=== PATIENT | male | born 1965 | race Caucasian/White ===

== ENCOUNTER 2017-11-17 08:00 | Outpatient (CLI) | payer OTHER ==
[2017-11-17 19:26] LABS: BASOPHILS % (AUTO) 1.2 %; EOSINOPHILS % (AUTO) 1.4 %; HGB - HEMOGLOBIN 7.4 g/dL (14.0-18.0); LYMPHOCYTES # (AUTO) 0.7 10^3/uL (1.5-3.5); LYMPHOCYTES % (AUTO) 25.4 %; MEAN CORPUSCULAR HEMOGLOBIN 25.6 pg (27.0-31.0); MEAN CORPUSCULAR HGB CONC 29.2 g/dL (32.0-36.0); MEAN CORPUSCULAR VOLUME 87.8 fL (80.0-94.0); MEAN PLATELET VOLUME 9.2 fL (7.4-11.4); MONOCYTES # (AUTO) 0.3 10^3/uL (0.0-1.0); MONOCYTES % (AUTO) 11.6 %; NEUTROPHILS # (AUTO) 1.6 10^3/uL (1.5-6.6); NEUTROPHILS % (AUTO) 60.4 %; PLT - PLATELET COUNT 172 10^3/uL (130-450); RED BLOOD COUNT 2.87 10^6/uL (4.70-6.10); RED CELL DISTRIBUTION WIDTH 14.4 % (12.0-15.0); WHITE BLOOD COUNT 2.7 x10^3/uL (4.8-10.8)
[2017-11-17 19:50] LABS: % IRON SATURATION 3 % (20-50); ALBUMIN 3.7 g/dL (3.2-5.5); ALKALINE PHOSPHATASE 71 IU/L (42-121); ALT ALANINE AMINOTRANSFERASE 33 IU/L (10-60); AST ASPARTATE AMINOTRANSFERASE 48 IU/L (10-42); BILIRUBIN,TOTAL 1.4 mg/dL (0.2-1.0); BUN - BLOOD UREA NITROGEN 10 mg/dL (6-20); CALCIUM 8.5 mg/dL (8.5-10.3); CARBON DIOXIDE - CO2 24 mmol/L (21-32); CHLORIDE 101 mmol/L (101-111); CHOL/HDL RATIO 4.5 (<5.0); CHOLESTEROL 140 mg/dL; CREATININE 0.9 mg/dL (0.6-1.2); GFR - MDRD 89 (>89); GLUCOSE 288 mg/dL (70-100); HDL CHOLESTEROL 31 mg/dL; IRON 17 ug/dL (45-182); LDL CHOLESTEROL,CALCULATED 71 mg/dL; LDL/HDL RATIO 2.3 (<3.6); SODIUM 132 mmol/L (135-145); TOTAL IRON BINDING CAPACITY 487 ug/dL (250-450); TOTAL PROTEIN 7.3 g/dL (6.7-8.2); TRANSFERRIN 348 mg/dL (180-329); VLDL CHOLESTEROL 38 mg/dL
[2017-11-17 20:35] LABS: PLATELET ESTIMATE, MANUAL NORMAL (130-450,000) (NORMAL); PLATELET MORPHOLOGY 2+ GIANT PLATELETS (NORMAL)
[2017-11-17 21:42] LABS: FERRITIN 9.9 ng/mL (23.9-336.2)
[2017-11-17 21:45] LABS: FOLATE 20.48 ng/mL (5.90 - >24.8)
== END 2017-11-17 08:01 ==
LOC: LAB.WCP 08:00
PROVIDERS: ATTEND Family Medicine
DX: I10 Essential (primary) hypertension (principal); K21.9 Gastro-esophageal reflux disease without esophagitis; D50.9 Iron deficiency anemia, unspecified; Z12.5 Encounter for screening for malignant neoplasm of prostate
CPT/HCPCS: 36415; 80053; 80061; 82607; 82728; 82746; 83540; 84153; 84466; 85025

== ENCOUNTER 2017-12-01 08:32 | Outpatient (CLI) | payer OTHER ==
[2017-12-01 09:18] LABS: EOSINOPHILS # (AUTO) 0.1 10^3/uL (0.0-0.7); EOSINOPHILS % (AUTO) 3.1 %; HGB - HEMOGLOBIN 8.7 g/dL (14.0-18.0); LYMPHOCYTES # (AUTO) 0.9 10^3/uL (1.5-3.5); LYMPHOCYTES % (AUTO) 30.9 %; MEAN CORPUSCULAR HEMOGLOBIN 24.5 pg (27.0-31.0); MEAN CORPUSCULAR HGB CONC 28.7 g/dL (32.0-36.0); MEAN CORPUSCULAR VOLUME 85.3 fL (80.0-94.0); MEAN PLATELET VOLUME 9.1 fL (7.4-11.4); MONOCYTES # (AUTO) 0.2 10^3/uL (0.0-1.0); MONOCYTES % (AUTO) 7.3 %; NEUTROPHILS # (AUTO) 1.7 10^3/uL (1.5-6.6); NEUTROPHILS % (AUTO) 57.7 %; PLT - PLATELET COUNT 150 10^3/uL (130-450); RED BLOOD COUNT 3.53 10^6/uL (4.70-6.10); RED CELL DISTRIBUTION WIDTH 15.7 % (12.0-15.0); WHITE BLOOD COUNT 2.9 x10^3/uL (4.8-10.8)
[2017-12-01 09:26] LABS: ALBUMIN 3.9 g/dL (3.2-5.5); ALBUMIN/GLOBULIN RATIO 1.2 (1.0-2.2); BILIRUBIN,TOTAL 1.1 mg/dL (0.2-1.0); CALCIUM 8.8 mg/dL (8.5-10.3); CREATININE 0.8 mg/dL (0.6-1.2); TOTAL PROTEIN 7.2 g/dL (6.7-8.2)
[2017-12-01 09:51] LABS: PLATELET MORPHOLOGY NORMAL APPEARANCE (NORMAL)
[2017-12-01 09:52] LABS: PLATELET ESTIMATE, MANUAL NORMAL (130-450,000) (NORMAL)
== END 2017-12-01 08:33 | disposition home or self-care (01) ==
LOC: LAB 08:32
PROVIDERS: ATTEND Family Medicine
DX: E11.9 Type 2 diabetes mellitus without complications (principal); D50.9 Iron deficiency anemia, unspecified
CPT/HCPCS: 36415; 80053; 85025

== ENCOUNTER 2018-03-01 08:00 | Outpatient (CLI) | payer OTHER | END 2018-03-01 23:59 | LOC: LAB.R 08:00 | PROVIDERS: ATTEND Internal Medicine | DX: D50.9 Iron deficiency anemia, unspecified (principal) | CPT/HCPCS: 82270 ==

== ENCOUNTER 2018-07-05 08:00 | Outpatient (CLI) | payer OTHER ==
[2018-07-05 12:58] LABS: BASOPHILS % (AUTO) 0.7 %; EOSINOPHILS # (AUTO) 0.1 10^3/uL (0.0-0.7); EOSINOPHILS % (AUTO) 3.3 %; HGB - HEMOGLOBIN 8.3 g/dL (14.0-18.0); LYMPHOCYTES # (AUTO) 0.6 10^3/uL (1.5-3.5); LYMPHOCYTES % (AUTO) 23.4 %; MEAN CORPUSCULAR HEMOGLOBIN 27.3 pg (27.0-31.0); MEAN CORPUSCULAR HGB CONC 31.8 g/dL (32.0-36.0); MEAN CORPUSCULAR VOLUME 85.8 fL (80.0-94.0); MEAN PLATELET VOLUME 9.1 fL (7.4-11.4); MEAN RETIC VALUE 102.7; MONOCYTES # (AUTO) 0.3 10^3/uL (0.0-1.0); MONOCYTES % (AUTO) 9.9 %; NEUTROPHILS # (AUTO) 1.7 10^3/uL (1.5-6.6); NEUTROPHILS % (AUTO) 62.7 %; PLT - PLATELET COUNT 112 10^3/uL (130-450); RED BLOOD COUNT 3.04 10^6/uL (4.70-6.10); RED CELL DISTRIBUTION WIDTH 15.8 % (12.0-15.0); WHITE BLOOD COUNT 2.7 x10^3/uL (4.8-10.8)
[2018-07-05 13:03] LABS: HB2 TOTAL 8.5 g/dL; HEMOGLOBIN A1C 0.32 g/dL; HEMOGLOBIN A1C % 5.6 % (4.6-6.2)
[2018-07-05 13:09] LABS: ALBUMIN 4.2 g/dL (3.2-5.5); ALBUMIN/GLOBULIN RATIO 1.4 (1.0-2.2); CREATININE 0.8 mg/dL (0.6-1.2); THYROID STIMULATING HORMONE 2.3 uIU/mL (0.34-5.60); TOTAL PROTEIN 7.3 g/dL (6.7-8.2)
[2018-07-05 13:12] LABS: CALCIUM 8.9 mg/dL (8.5-10.3)
[2018-07-05 13:16] LABS: FERRITIN 8.6 ng/mL (23.9-336.2)
[2018-07-05 13:28] LABS: PLATELET MORPHOLOGY RARE GIANT PLATELETS (NORMAL); RBC MORPHOLOGY (MULTIPLE) 3+ ANISOCYTOSIS (NORMAL)
== END 2018-07-05 08:01 | disposition home or self-care (01) ==
LOC: LAB.WCP 08:00
PROVIDERS: ATTEND Family Medicine
DX: D61.818 Other pancytopenia (principal); E11.9 Type 2 diabetes mellitus without complications; D50.9 Iron deficiency anemia, unspecified; I10 Essential (primary) hypertension
CPT/HCPCS: 36415; 80053; 82607; 82728; 82746; 83036; 83540; 84443; 84466; 85025; 85044

== ENCOUNTER 2018-08-23 10:50 | Outpatient (CLI) | payer OTHER ==
[2018-08-23 13:56] LABS: EOSINOPHILS % (AUTO) 2.3 %; HGB - HEMOGLOBIN 8.4 g/dL (14.0-18.0); LYMPHOCYTES # (AUTO) 0.4 10^3/uL (1.5-3.5); LYMPHOCYTES % (AUTO) 22.7 %; MEAN CORPUSCULAR HEMOGLOBIN 25.9 pg (27.0-31.0); MEAN CORPUSCULAR HGB CONC 30.4 g/dL (32.0-36.0); MEAN CORPUSCULAR VOLUME 85.3 fL (80.0-94.0); MEAN PLATELET VOLUME 9.2 fL (7.4-11.4); MONOCYTES # (AUTO) 0.2 10^3/uL (0.0-1.0); MONOCYTES % (AUTO) 12.1 %; NEUTROPHILS # (AUTO) 1.2 10^3/uL (1.5-6.6); NEUTROPHILS % (AUTO) 61.9 %; PLT - PLATELET COUNT 110 10^3/uL (130-450); RED BLOOD COUNT 3.23 10^6/uL (4.70-6.10); RED CELL DISTRIBUTION WIDTH 19.8 % (12.0-15.0)
[2018-08-23 14:35] LABS: PLATELET ESTIMATE, MANUAL DECREASED (<130,000) (NORMAL); PLATELET MORPHOLOGY NN (NORMAL)
[2018-08-23 14:41] LABS: WHITE BLOOD COUNT 1.9 x10^3/uL (4.8-10.8)
[2018-08-23 15:03] LABS: ALBUMIN/GLOBULIN RATIO 1.3 (1.0-2.2); BILIRUBIN,TOTAL 1.8 mg/dL (0.2-1.0); CALCIUM 9.1 mg/dL (8.5-10.3); CREATININE 0.9 mg/dL (0.6-1.2)
[2018-08-23 15:10] LABS: HB2 TOTAL 8.6 g/dL; HEMOGLOBIN A1C 0.28 g/dL; HEMOGLOBIN A1C % 5.1 % (4.6-6.2)
== END 2018-08-23 10:51 | disposition home or self-care (01) ==
LOC: LAB.WCP 10:50
PROVIDERS: ATTEND Family Medicine
DX: D50.9 Iron deficiency anemia, unspecified (principal); K64.8 Other hemorrhoids; D61.818 Other pancytopenia; E11.9 Type 2 diabetes mellitus without complications
CPT/HCPCS: 36415; 80053; 82728; 83036; 83540; 84466; 85025

== ENCOUNTER 2019-04-12 08:00 | Outpatient (CLI) | payer OTHER ==
[2019-04-12 14:12] LABS: BASOPHILS % (AUTO) 0.6 %; EOSINOPHILS # (AUTO) 0.1 10^3/uL (0.0-0.7); EOSINOPHILS % (AUTO) 4.1 %; HGB - HEMOGLOBIN 9.9 g/dL (14.0-18.0); LYMPHOCYTES # (AUTO) 0.5 10^3/uL (1.5-3.5); LYMPHOCYTES % (AUTO) 18.7 %; MEAN CORPUSCULAR HEMOGLOBIN 23.4 pg (27.0-31.0); MEAN CORPUSCULAR HGB CONC 30.4 g/dL (32.0-36.0); MEAN CORPUSCULAR VOLUME 76.9 fL (80.0-94.0); MEAN PLATELET VOLUME 8.5 fL (7.4-11.4); MONOCYTES # (AUTO) 0.2 10^3/uL (0.0-1.0); MONOCYTES % (AUTO) 8.5 %; NEUTROPHILS % (AUTO) 68.1 %; PLT - PLATELET COUNT 135 10^3/uL (130-450); RED BLOOD COUNT 4.24 10^6/uL (4.70-6.10); RED CELL DISTRIBUTION WIDTH 18.3 % (12.0-15.0); WHITE BLOOD COUNT 2.9 x10^3/uL (4.8-10.8)
[2019-04-12 14:29] LABS: CREATININE,URINE 182.1 mg/dL; MICROALBUM/CREATININE RATIO,UR 18.1 ug/mg (<30.0); MICROALBUMIN,URINE 3.3 mg/dL (0-300.0)
[2019-04-12 14:35] LABS: BILIRUBIN,TOTAL 1.3 mg/dL (0.2-1.0); CREATININE 1.2 mg/dL (0.6-1.2); TOTAL PROTEIN 7.9 g/dL (6.7-8.2)
[2019-04-12 15:43] LABS: PLATELET ESTIMATE, MANUAL NORMAL (130-450,000) (NORMAL); PLATELET MORPHOLOGY 1+ LARGE PLATELETS (NORMAL); RBC MORPHOLOGY (MULTIPLE) 1+ POLYCHROMASIA (NORMAL)
== END 2019-04-12 23:59 | disposition home or self-care (01) ==
LOC: LAB.WCP 08:00
PROVIDERS: ATTEND Family Medicine
DX: D64.9 Anemia, unspecified (principal); K64.8 Other hemorrhoids; K22.70 Barrett's esophagus without dysplasia; I10 Essential (primary) hypertension
CPT/HCPCS: 36415; 80053; 81599; 82043; 82570; 82728; 83036; 83540; 84466; 85025

== ENCOUNTER 2019-08-07 11:16 | Outpatient (CLI) | payer OTHER ==
[2019-08-07 11:29] LABS: BASOPHILS % (AUTO) 1.3 %; EOSINOPHILS # (AUTO) 0.1 10^3/uL (0.0-0.7); EOSINOPHILS % (AUTO) 3.5 %; HGB - HEMOGLOBIN 11.7 g/dL (14.0-18.0); LYMPHOCYTES # (AUTO) 0.5 10^3/uL (1.5-3.5); LYMPHOCYTES % (AUTO) 16.5 %; MEAN CORPUSCULAR HEMOGLOBIN 27.3 pg (27.0-31.0); MEAN CORPUSCULAR HGB CONC 30.3 g/dL (32.0-36.0); MEAN PLATELET VOLUME 9.7 fL (7.4-11.4); MONOCYTES # (AUTO) 0.3 10^3/uL (0.0-1.0); MONOCYTES % (AUTO) 10.3 %; NEUTROPHILS # (AUTO) 2.1 10^3/uL (1.5-6.6); NEUTROPHILS % (AUTO) 68.1 %; PLT - PLATELET COUNT 90 10^3/uL (130-450); RED BLOOD COUNT 4.29 10^6/uL (4.70-6.10); RED CELL DISTRIBUTION WIDTH 26.5 % (12.0-15.0); WHITE BLOOD COUNT 3.1 x10^3/uL (4.8-10.8)
[2019-08-07 11:52] LABS: HB2 TOTAL 12.2 g/dL; HEMOGLOBIN A1C 0.48 g/dL; HEMOGLOBIN A1C % 5.8 % (4.6-6.2)
[2019-08-07 11:55] LABS: ALBUMIN 3.5 g/dL (3.2-5.5); ALBUMIN/GLOBULIN RATIO 0.8 (1.0-2.2); BILIRUBIN,TOTAL 3.2 mg/dL (0.2-1.0); CALCIUM 8.7 mg/dL (8.5-10.3); CRP - C-REACTIVE PROTEIN 5.4 mg/dL (0-1.0)
[2019-08-07 12:12] LABS: CREATININE,URINE 210.7 mg/dL; MICROALBUM/CREATININE RATIO,UR 67.9 ug/mg (<30.0); MICROALBUMIN,URINE 14.3 mg/dL (0-300.0)
== END 2019-08-07 11:17 | disposition home or self-care (01) ==
LOC: LAB 11:16
PROVIDERS: ATTEND Family Medicine
DX: C64.1 Malignant neoplasm of right kidney, except renal pelvis (principal); D64.9 Anemia, unspecified; D50.9 Iron deficiency anemia, unspecified; E11.9 Type 2 diabetes mellitus without complications; I10 Essential (primary) hypertension
CPT/HCPCS: 36415; 80053; 82043; 82570; 82728; 83036; 83540; 84466; 85025; 85651; 86140

== ENCOUNTER 2019-08-14 10:25 | Outpatient (CLI) | payer OTHER | END 2019-08-14 10:26 | disposition critical access hospital (66) | LOC: EMS 10:25 | PROVIDERS: ATTEND Surgery | DX: R55 Syncope and collapse (principal); R41.0 Disorientation, unspecified; R51 Headache; R47.81 Slurred speech | CPT/HCPCS: A0425; A0429 ==

== ENCOUNTER 2019-08-14 10:41 | Observation (INO) | payer OTHER ==
--- NOTE | 2019-08-14 10:46 | ED Physician Documentation ---
History of Present Illness - Stated complaint Stated Complaint: POSS CVA PD PAST MEDICAL HISTORY - Present Medications Home Medications: Ambulatory Orders Medication Instructions Recorded Confirmed Carvedilol 2 tab PO DAILY 01/10/18 07/03/19 Esomeprazole Magnesium [Nexium 20 mg PO DAILY 01/10/18 07/03/19 24Hr] Ferrous Sulfate 1 tab PO DAILY 01/10/18 07/03/19 amLODIPine [Norvasc] 2.5 mg PO DAILY 01/10/18 07/03/19 metFORMIN [Glucophage] 1,000 mg PO DAILY 01/10/18 07/03/19 - Allergies Allergies/Adverse Reactions: Allergies Allergy/AdvReac Type Severity Reaction Status Date / Time fentanyl AdvReac Unknown Verified 08/14/19 11:15 Results - Vitals Vitals: Vital Signs - 24 hr 08/14/19 08/14/19 08/14/19 10:40 11:10 12:03 Temperature 36.6 C Heart Rate 88 88 88 Respiratory 18 17 29 H Rate Blood Pressure 144/88 H 143/87 H 143/84 H O2 Saturation 92 93 95 Oxygen O2 Source Room air - Labs Labs: Laboratory Tests 08/14/19 08/14/19 08/14/19 11:05 11:05 11:05 WBC 3.1 L RBC 4.16 L Hgb 11.1 L Hct 37.1 L MCV 89.2 MCH 26.7 L MCHC 29.9 L Plt Count 80 L MPV 9.6 Neut # (Auto) 1.9 Lymph # (Auto) 0.7 L Rowan # (Auto) 0.3 Eos # (Auto) 0.1 Baso # (Auto) 0.0 Absolute Nucleated RBC 0.00 Nucleated RBC % 0.0 Manual Slide Review Indicated Platelet Estimate DECREASED (<130,000) Platelet Morphology NORMAL APPEARANCE RBC Morph Micro Appear 2+ ANISOCYTOSIS PT 15.0 H INR 1.3 H APTT 37.3 H Sodium 142 Potassium 3.9 Chloride 103 Carbon Dioxide 23 Anion Gap 16.0 H BUN 5 L Creatinine 0.9 Estimated GFR (MDRD) 88 L Glucose 147 H Calcium 8.3 L Total Bilirubin 3.1 H AST 202 H ALT 54 Alkaline Phosphatase 219 H Troponin I High Sens Total Protein 7.4 Albumin 3.2 Globulin 4.2 Albumin/Globulin Ratio 0.8 L Lipase 43 TSH Urine Color Urine Clarity Urine pH Ur Specific [place] Urine Protein Urine Glucose (UA) Urine Ketones Urine Occult Blood Urine Nitrite Urine Bilirubin Urine Urobilinogen Ur Leukocyte Esterase Ur Microscopic Review Urine Culture Comments Ethyl Alcohol 08/14/19 08/14/19 08/14/19 11:05 11:05 11:05 WBC RBC Hgb Hct MCV MCH MCHC Plt Count MPV Neut # (Auto) Lymph # (Auto) Rowan # (Auto) Eos # (Auto) Baso # (Auto) Absolute Nucleated RBC Nucleated RBC % Manual Slide Review Platelet Estimate Platelet Morphology RBC Morph Micro Appear PT INR APTT Sodium Potassium Chloride Carbon Dioxide Anion Gap BUN Creatinine Estimated GFR (MDRD) Glucose Calcium Total Bilirubin AST ALT Alkaline Phosphatase Troponin I High Sens 11.4 Total Protein Albumin Globulin Albumin/Globulin Ratio Lipase TSH 3.91 Urine Color Urine Clarity Urine pH Ur Specific [place] Urine Protein Urine Glucose (UA) Urine Ketones Urine Occult Blood Urine Nitrite Urine Bilirubin Urine Urobilinogen Ur Leukocyte Esterase Ur Microscopic Review Urine Culture Comments Ethyl Alcohol 205.8 08/14/19 12:10 WBC RBC Hgb Hct MCV MCH MCHC Plt Count MPV Neut # (Auto) Lymph # (Auto) Rowan # (Auto) Eos # (Auto) Baso # (Auto) Absolute Nucleated RBC Nucleated RBC % Manual Slide Review Platelet Estimate Platelet Morphology RBC Morph Micro Appear PT INR APTT Sodium Potassium Chloride Carbon Dioxide Anion Gap BUN Creatinine Estimated GFR (MDRD) Glucose Calcium Total Bilirubin AST ALT Alkaline Phosphatase Troponin I High Sens Total Protein Albumin Globulin Albumin/Globulin Ratio Lipase TSH Urine Color YELLOW Urine Clarity CLEAR Urine pH 7.0 Ur Specific [place] <=1.005 Urine Protein NEGATIVE Urine Glucose (UA) NEGATIVE Urine Ketones TRACE Urine Occult Blood NEGATIVE Urine Nitrite NEGATIVE Urine Bilirubin NEGATIVE Urine Urobilinogen 1 (NORMAL) Ur Leukocyte Esterase NEGATIVE Ur Microscopic Review NOT INDICATED Urine Culture Comments NOT INDICATED Ethyl Alcohol
[2019-08-14 11:13] LABS: EOSINOPHILS # (AUTO) 0.1 10^3/uL (0.0-0.7); EOSINOPHILS % (AUTO) 3.9 %; HGB - HEMOGLOBIN 11.1 g/dL (14.0-18.0); LYMPHOCYTES # (AUTO) 0.7 10^3/uL (1.5-3.5); LYMPHOCYTES % (AUTO) 21.6 %; MEAN CORPUSCULAR HEMOGLOBIN 26.7 pg (27.0-31.0); MEAN CORPUSCULAR HGB CONC 29.9 g/dL (32.0-36.0); MEAN CORPUSCULAR VOLUME 89.2 fL (80.0-94.0); MEAN PLATELET VOLUME 9.6 fL (7.4-11.4); MONOCYTES # (AUTO) 0.3 10^3/uL (0.0-1.0); MONOCYTES % (AUTO) 10.1 %; NEUTROPHILS # (AUTO) 1.9 10^3/uL (1.5-6.6); NEUTROPHILS % (AUTO) 63.1 %; PLT - PLATELET COUNT 80 10^3/uL (130-450); RED BLOOD COUNT 4.16 10^6/uL (4.70-6.10); WHITE BLOOD COUNT 3.1 x10^3/uL (4.8-10.8)
[2019-08-14 11:18] LABS: INR 1.3 (0.8-1.2)
[2019-08-14 11:26] LABS: PARTIAL THROMBOPLASTIN TIME 37.3 secs (24.9-33.3)
[2019-08-14 11:28] LABS: ALBUMIN 3.2 g/dL (3.2-5.5); ALBUMIN/GLOBULIN RATIO 0.8 (1.0-2.2); BILIRUBIN,TOTAL 3.1 mg/dL (0.2-1.0); CALCIUM 8.3 mg/dL (8.5-10.3); CREATININE 0.9 mg/dL (0.6-1.2); TOTAL PROTEIN 7.4 g/dL (6.7-8.2)
--- NOTE | 2019-08-14 11:33 | CT Report ---
Reason: Confusion, fall, facial droop Procedure Date: 08/14/2019 Accession Number: [id number] / [id number] Procedure: CT - ANGIO HEAD W/WO CPT Code: FULL RESULT: CT HEAD WITHOUT AND WITH CONTRAST AND CT ANGIOGRAM HEAD INDICATION: 54-year-old male. Fall. Confusion. Facial droop. TECHNIQUE: Head CT Sequential 5 mm axial images were obtained through the brain prior to and following the CT angiogram. CT angiogram head 80 mL of Optiray 320 contrast were injected at a rapid rate through a large bore, antecubital intravenous catheter. The head was scanned helically during arterial phase. The data was reconstructed into 0.5 mm axial images. In addition, MIP reconstructions have been generated in multiple projections to allow better assessment of the intracranial arteries. In accordance with CT protocol optimization, one or more of the following dose reduction techniques were utilized for this exam: automated exposure control, adjustment of mA and/or KV based on patient size, or use of iterative reconstructive technique. COMPARISON: None. FINDINGS: Head CT No focal scalp hematoma is identified. No skull or skull base fracture is demonstrated. The middle ear cavities and mastoid air cells appear clear. The paranasal sinuses are essentially clear. There is no intracranial hemorrhage or abnormal extra-axial fluid collection. There is no mass-effect or midline shift. There is generalized prominence of the cerebral cortical sulci and cerebellar folia considered at the upper limits of normal for stated age. Ventricular size is normal. There is extensive noise (quantum mottle artifact) on brain window images, presumably related to low-dose technique. However, grossly the juarez-white differentiation appears maintained bilaterally. No enhancing space-occupying mass lesion is demonstrated. There appears to be normal intravascular contrast enhancement in the dural venous sinuses and deep venous structures. CT angiogram head Anterior circulation: There is minimal calcified plaque in the cavernous segment of the left internal carotid artery without associated stenosis. The internal carotid arteries appear widely patent bilaterally. No ICA aneurysm is seen. The A1 segment of the anterior cerebral arteries are codominant. No definite anterior communicating artery is demonstrated. There appears to be good filling of the A2 and distal LEANN branches bilaterally. No obvious LEANN branch occlusion is demonstrated. The middle cerebral arteries are unremarkable. No aneurysm is demonstrated and there is no obvious occlusion or hemodynamically significant stenosis affecting the main branches of either MCA. There appear to be a similar number of opacified M3 and M4 branches bilaterally. Posterior circulation: The vertebral arteries and PICAs appear patent. No aneurysm is seen at either PICA origin. The basilar artery, superior cerebellar arteries and posterior cerebral arteries appear widely patent. There is a moderate sized, right posterior communicating artery. No definite left posterior communicator is demonstrated. No aneurysms are seen arising from the basilar artery trunk or apex. There appears to be a tiny, wide-necked, conical outpouching arising from the superior wall of the P1 segment for the left TOOLMAKER GRADE THREE (see image 90 of series #14); however, on axial source images there appears to be a tiny vessel arising from the apex of this outpouching suggesting that it represents an infundibulum rather than an aneurysm. IMPRESSION: Head CT No acute intracranial pathology is demonstrated. In particular, no skull or skull base fracture is identified and there is no intracranial hemorrhage. In addition, there is no CT evidence of an acute, large vessel territory cortical infarction (ASPECTS appears to equal 10 bilaterally). However, it should be noted that small and early infarctions can be missed on CT. Therefore consider further evaluation with MRI as clinically warranted. CT angiogram head Unremarkable study. In particular, no evidence of occlusion or hemodynamically significant stenosis affecting main branches of the anterior or posterior circulations. In addition, no definite intracranial aneurysm has been identified.
[2019-08-14 11:51] LABS: PLATELET ESTIMATE, MANUAL DECREASED (<130,000) (NORMAL); PLATELET MORPHOLOGY NORMAL APPEARANCE (NORMAL)
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
[2019-08-14 12:38] LABS: BILIRUBIN,URINE NEGATIVE (NEGATIVE); GLUCOSE, URINE (UA) NEGATIVE (NEGATIVE); KETONES,URINE (UA) TRACE mg/dL (NEGATIVE); LEUKOCYTE ESTERASE, URINE NEGATIVE (NEGATIVE); NITRITE,URINE NEGATIVE (NEGATIVE); OCCULT BLOOD,URINE NEGATIVE (NEGATIVE); PROTEIN,URINE NEGATIVE (NEGATIVE); UROBILINOGEN,URINE 1 (NORMAL) E.U./dL (NORMAL)
[2019-08-14 12:41] LABS: CLARITY,URINE CLEAR (CLEAR)
[2019-08-14] MEDS ORDERED: GADOBUTROL 15 MMOL/15 ML VIAL ONE (13:23)
[2019-08-14] MEDS ORDERED: GADOBUTROL 10 MMOL/10 ML VIAL ONE (13:23)
[2019-08-14] MEDS ORDERED: GADOBUTROL 15 MMOL/15 ML VIAL IVP ONE (13:31)
[2019-08-14] MEDS ORDERED: ACETAMINOPHEN 325 MG TABLET PO STA (13:52)
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
--- NOTE | 2019-08-14 14:24 | MRI Report ---
Reason: Left sided weakness Procedure Date: 08/14/2019 Accession Number: [id number] / [id number] Procedure: MRI - Brain W/WO CPT Code: FULL RESULT: EXAM: MRI BRAIN WITHOUT AND WITH CONTRAST EXAM DATE: 08/14/2019 01:39 PM. CLINICAL HISTORY: 54-year-old male. Left sided weakness. COMPARISON: CTA neck 08/14/2019 TECHNIQUE: Multiplanar, multisequence T1-weighted and fluid-sensitive MR sequences of the brain were performed before and after administration of intravenous contrast. Sequences optimized for routine evaluation. Other: None. IV Contrast: 15 mL Gadavist. FINDINGS: Brain Volume: Normal for age. Parenchyma: No acute hemorrhage, mass, or infarct. No white matter lesions identified. No abnormal enhancement. Ventricles/Cisterns: No hydrocephalus. No abnormal extra-axial fluid collection or hemorrhage. Orbits: Symmetric and unremarkable. Sella Turcica: The pituitary gland, cavernous sinuses, suprasellar cistern and optic chiasm are unremarkable. IAC: Symmetric and unremarkable. Vasculature: Normal signal flow void is seen in the major arterial structures at the skull base. The dural sinuses are patent and enhance normally. Sinuses: No acute sinus disease. Bones: No focal pathologic appearing marrow signal changes. Other: None. IMPRESSION: 1. Unremarkable brain MRI. No significant white matter disease burden. No abnormal enhancement. No MRI evidence of acute intracranial abnormality. Specifically, no evidence of acute or subacute infarct, acute intracranial hemorrhage, mass, midline shift, or hydrocephalus. RADIA
[2019-08-14] MEDS ORDERED: ONDANSETRON 4 MG/2 ML VIAL IVP PRN (15:07)
[2019-08-14] MEDS ORDERED: SODIUM CHLORIDE FLUSH 0.9% 10 ML SYRINGE IVP PRN (15:07)
--- NOTE | 2019-08-14 16:31 | ED Physician Documentation ---
ED Addendum - Addendum Addendum: 08/14/19 16:30 His called me into the room, he had several questions for me and gave me permission to review his medical records.
--- NOTE | 2019-08-14 18:56 | HISTORY & PHYSICAL EXAMINATION ---
Chief Complaint - Chief Complaint Chief Complaint: Syncope History of Present Illness - Admitted From Admitted From:: Home - History Obtained From Records Reviewed: Yes History obtained from: Patient, Spouse, ER Physician - History of Present Illness HPI Comment/Other: This is a 54 year old male with a past medical history significant for hypertension, type 2 diabetes, pancytopenia who presents from home after having two syncopal episodes. This morning he felt the need to vomit so he went to the bathroom and after he vomited, he passed out. His heard him fall and went to him where he was passed out for about 20 seconds. He was a little confused after but got up on his own and walked to the bedroom on his own. He then went to go put on his shoes to go to the ER when he passed out again as he was bending over. His heard him fall again and once again he was out for about 20 seconds and was a little confused after. She then called EMS for transport to the ER. The patient reports no prior episodes of syncope. He denies chest pain, palpitations, dizziness or lighteadedness. He did have a nose bleed after the first fall. His believes that he may have hit his head. He did drink alcohol last night and had two alcoholic beverages with the last being at 2pm. He does drink 2 drinks daily for the past few years. He did have cold like symptoms last week and was taking coricidin. When EMS arrived, there was concern for a possible facial droop and left sided weakness. The denies the patient having a facial droop but does state that he was unable to smile. The patient reports feeling weak and having numbness of his left upper extremity but that has since resolved. In the ER, he underwent imaging with a CTA and MRI of the brain which were unremarkable. EtOH level was >200. EKG was unremarkable except for a prolonged QTc of 477. Given concern for TIA and syncope, Medicine was consulted for admission. I did speak with the patient regarding code status and he is a full code. History - Past Medical History Cardiovascular: reports: Hypertension Respiratory: reports: None Neuro: reports: None Endocrine/Autoimmune: reports: Type 2 diabetes GI: reports: GERD, Other : reports: None HEENT: reports: None Psych: reports: None Musculoskeletal: reports: None Derm: reports: None MRSA Hx?: Yes Other Past Medical History: Anemia, barrets esophagus - Past Surgical History General: reports: Colonoscopy, EGD - Family & Social History Family History Comment/Other: Mother had diabetes and hypertension. Father had plaza's esophagus. Living arrangement: At home Living Situation: With spouse/s.o. Social History Notes: He lives at home with his . 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 Does not smoke but drinks 2 alcoholic beverages a night for past few years. - Substance History Use: Uses substance without health or social issues: Alcohol Meds/Allgy - Home Medications Home Medications: Ambulatory Orders Medication Instructions Recorded Confirmed Carvedilol 6.25 mg PO BID 01/10/18 08/14/19 Esomeprazole Magnesium [Nexium 20 mg PO DAILY 01/10/18 07/03/19 24Hr] Ferrous Sulfate 1 tab PO DAILY 01/10/18 07/03/19 Amlodipine Besylate [Norvasc] 2.5 mg PO DAILY 08/14/19 08/14/19 Metformin HCl [Metformin HCl ER] 500 mg PO DAILY 08/14/19 08/14/19 - Allergies Allergies/Adverse Reactions: Allergies Allergy/AdvReac Type Severity Reaction Status Date / Time fentanyl AdvReac Unknown Verified 08/14/19 17:36 Review of Systems - Constitutional Constitutional: denies: Fatigue, Fever, Chills - Ears, Nose & Throat Ears, Nose & Throat: reports: Nosebleeds - Cardiovascular Cariovascular: reports: Syncope. denies: Palpitations, Chest pain, Edema - Respiratory Respiratory: denies: SOB at rest, SOB with exertion - Gastrointestinal Gastrointestinal: denies: Abdominal pain, Black stools, Nausea - Genitourinary Genitourinary: denies: Dysuria, Frequency - Musculoskeletal Musculoskeletal: reports: Muscle weakness - Integumentary Integumentary: denies: Rash - Neurological Neurological: reports: Focal weakness, Headache, Numbness - All Other Systems All Other Systems: reports: Reviewed and negative Prior Level of Functionality: Independent with ADL's. Exam - Vital Signs Vital Signs: Vital Signs x48h Temp Pulse Pulse Resp BP BP Pulse Ox 08/14/19 17:00 37.1 C 86 18 133/72 H 93 08/14/19 15:57 92 22 154/90 H 95 08/14/19 15:07 89 13 155/94 H 93 08/14/19 14:21 86 20 155/87 H 93 08/14/19 12:03 88 29 H 143/84 H 95 08/14/19 11:10 88 17 143/87 H 93 - Physical Exam General Appearance: positive: No acute distress, Alert Eyes Bilateral: positive: Normal inspection ENT: positive: ENT inspection nml, Other (No evidence of nasal bleeding although the nares do appear inflamed.) Neck: positive: Nml inspection Respiratory: positive: No respiratory distress. negative: Wheezes, Rales, Rhonchi Cardiovascular: positive: Regular rate & rhythm, No murmur. negative: Systolic murmur Abdomen: positive: Non-tender, No distention. negative: Tenderness, Guarding, Rebound Skin: positive: No rash, Warm, Dry Extremities: positive: Full ROM, No pedal edema Neurologic/Psychiatric: positive: Oriented x3, CN's nml (2-12), Motor nml, Sensation nml. negative: Disoriented to person, Disoriented to place, Disoriented to time, Facial droop, Slurred/abnml speech Conclusion/Plan - Problem List (1) Syncope Conclusion/Plan: This may be vasovagal syncope given his vomiting prior to the initial episode. Orthostatic hypotension and arrhythmia will need to be ruled out. Imaging of the head was unremarkable. EKG was unremarkable except prolonged Qtc of 477. Will obtain echocardiogram, monitor on telemetry, and check orthostatics. Qualifiers: Syncope type: unspecified Qualified Code(s): R55 - Syncope and collapse (2) TIA (transient ischemic attack) Conclusion/Plan: His initial presentation is concerning for TIA given the left sided upper extremity weakness and numbness. Fortunately MRI did not reveal a stroke. He does have risk factors including diabetes and hypertension. Will start baby aspirin after discussion with the patient given his panyctopenia and anemia in the past requiring transfusions. We did discuss monitoring for bleeding and importance of outpatient follow up. Will also start statin given his diabetes. Check echo. (3) Transaminitis Conclusion/Plan: Likely secondary to alcohol use. AST > ALT. Relatively stable compared to last year. Trend LFT's. (4) Hypertension Conclusion/Plan: He is hypertensive but there is concerning for orthostatic hypotension as cause of his syncope. Will hold home antihypertensives until orthostatics are checked. (5) Type 2 diabetes mellitus Conclusion/Plan: Blood glucose is elevated in the 140's. Will use sliding scale and check A1c. (6) Pancytopenia Conclusion/Plan: Chronic but stable. Follows with Heme/Onc on outpatient basis. - Lab Results Lab results reviewed: Yes Darian Bones: 08/14/19 11:05 08/14/19 11:05 - Diagnostic Imaging Results Diagnostic Imaging Results: positive: Final report reviewed - EKG Results EKG Interpreted Independently: Yes EKG Findings: Sinus rhythm with prolonged QTc. Core Measures - Anticipated LOS I expect patient to be DC'd or transferred within 96 hours.: Yes - Issues Hospital Issues and Management Plan: TIA/Syncope work up. Echo and monitor on telemetry. - DVT/VTE - Prophylaxis VTE/DVT Device ordered at admit?: Yes VTE/DVT Prophylaxis med ordered at admit?: No Not Ordered - Medical Reason: Not indicated
[2019-08-14] MEDS ORDERED: SODIUM CHLORIDE 0.9% 1,000 ML IV ONE (19:08)
[2019-08-14] MEDS: SODIUM CHLORIDE 0.9% 1,000 ML IV SCH (20:31)
[2019-08-14] MEDS: SODIUM CHLORIDE FLUSH 0.9% 10 ML SYRINGE IVP SCH (20:48)
[2019-08-14] MEDS ORDERED: HEPARIN 5,000 UNIT/ML VIAL SUBQ SCH (21:00)
[2019-08-14] MEDS ORDERED: ATORVASTATIN 40 MG TABLET PO SCH (21:00)
[2019-08-14] MEDS: ACETAMINOPHEN 325 MG TABLET PO PRN (21:40)
[2019-08-14] MEDS ORDERED: traZODone 50 MG TABLET PO SCH (23:12)
[2019-08-15] MEDS: SODIUM CHLORIDE FLUSH 0.9% 10 ML SYRINGE IVP SCH ×2 (02:31→08:19)
[2019-08-15] MEDS: ACETAMINOPHEN 325 MG TABLET PO PRN (03:20)
[2019-08-15] MEDS: SODIUM CHLORIDE 0.9% 1,000 ML IV SCH (04:27)
[2019-08-15 05:55] LABS: BASOPHILS % (AUTO) 0.7 %; EOSINOPHILS % (AUTO) 4.1 %; HGB - HEMOGLOBIN 10.3 g/dL (14.0-18.0); LYMPHOCYTES % (AUTO) 18.4 %; MEAN CORPUSCULAR HEMOGLOBIN 26.9 pg (27.0-31.0); MEAN CORPUSCULAR VOLUME 89.6 fL (80.0-94.0); MEAN PLATELET VOLUME 9.6 fL (7.4-11.4); MONOCYTES % (AUTO) 9.5 %; NEUTROPHILS % (AUTO) 67.3 %; PLT - PLATELET COUNT 64 10^3/uL (130-450); RED BLOOD COUNT 3.83 10^6/uL (4.70-6.10); WHITE BLOOD COUNT 2.9 x10^3/uL (4.8-10.8)
[2019-08-15 06:08] LABS: MAGNESIUM 1.7 mg/dL (1.7-2.8)
[2019-08-15 06:10] LABS: ABNORMAL LYMPHS % (MANUAL) 0 %; BAND NEUTROPHILS % (MANUAL) 0 %
[2019-08-15 07:02] LABS: EOSINOPHILS # (MANUAL) 0.1 10^3/uL (0-0.7); LYMPHOCYTES # (MANUAL) 0.6 10^3/uL (1.5-3.5); LYMPHOCYTES % (MANUAL) 21 %; MONOCYTES # (MANUAL) 0.2 10^3/uL (0.0-1.0)
[2019-08-15 07:04] LABS: PLATELET ESTIMATE, MANUAL DECREASED (<130,000) (NORMAL); PLATELET MORPHOLOGY NORMAL APPEARANCE (NORMAL); RBC MORPHOLOGY (MULTIPLE) 3+ ANISOCYTOSIS (NORMAL)
[2019-08-15 07:05] LABS: DIFFERENTIAL COMMENT MANUAL DIFFERENTIAL
[2019-08-15 07:20] LABS: HB2 TOTAL 10.9 g/dL; HEMOGLOBIN A1C 0.4 g/dL; HEMOGLOBIN A1C % 5.5 % (4.6-6.2)
--- NOTE | 2019-08-15 08:11 | CT Report ---
Reason: FACIAL DROOP, CONFUSION Procedure Date: 08/15/2019 Accession Number: [id number] / [id number] Procedure: CT - ANGIO NECK W CPT Code: FULL RESULT: EXAM: CT ANGIOGRAM NECK EXAM DATE: 08/14/2019 10:50 AM. CLINICAL HISTORY: Confusion. Fall. Facial droop. COMPARISON: BRAIN W/WO 08/14/2019 12:52 PM. TECHNIQUE: Routine axial helical imaging was performed from the skull base through the aortic arch. Reconstructions: Routine multiplanar 3D MIP reconstructions. IV Contrast: 15 mL Gadavist. Evaluation of arterial stenosis is based on a NASCET method of measurement. In accordance with CT protocol optimization, one or more of the following dose reduction techniques were utilized for this exam: automated exposure control, adjustment of mA and/or KV based on patient size, or use of iterative reconstructive technique. FINDINGS: Great vessel origins: Atherosclerotic plaque is seen in the transverse thoracic aorta. No significant great vessel origin stenosis is present. Right Carotid: A small focus of atherosclerotic calcification is seen in the proximal cervical ICA without significant narrowing seen in the cervical ICA. Left Carotid: A tiny focus of calcified atherosclerotic plaque is seen at the origin of the cervical ICA without significant narrowing present in the cervical ICA. Vertebrals: The proximal vertebral arteries are poorly visualized due to streak artifact and timing of the contrast bolus. There appears to be at least mild stenosis at the origin of the right vertebral artery. The cervical vertebral arteries appear to be patent. Intracranial Circulation: Not seen in its entirety. A posterior communicating artery is seen on the right. Atherosclerotic plaque is seen in the cavernous ICA bilaterally without significant narrowing present. The M1 segment of each MCA is patent. The basilar trunk is patent. Projecting superior to the P1 segment of the right VIRTUALIZATION ARCHITECT is a 1-2 mm focus of contrast image 500 series 2. Other: No mass is present in either orbit. No mass is present in either submandibular gland or in either parotid gland. There is asymmetric soft tissue fullness which is greater involving the left aryepiglottic fold and the lateral wall of the airway above the level of the aryepiglottic fold on the left. No subglottic stenosis is present. No bulky lymphadenopathy is identified in the neck. Asymmetric fat is seen in the right lower neck extending down to the level of the clavicle. No suspicious spiculated mass is present near the lung apex. Degenerative disk disease and osteophyte formation are seen at scattered levels. IMPRESSION: 1. No significant stenosis is present in either cervical ICA. 2. The proximal vertebral artery is poorly visualized bilaterally. There appears to be at least mild stenosis at the origin of the right vertebral artery. 3. No filling defect is present in the M1 segment of either MCA or in the basilar trunk. 4. The focus of contrast projecting superior to the P1 segment of the left VIRTUALIZATION ARCHITECT could reflect an infundibular origin to a small vessel not seen by CTA. An aneurysm is not excluded. One might consider MRA of the head or a dedicated CTA of the cahto of Torres to better characterize this finding. 5. Asymmetric fullness involving the left aryepiglottic fold is present. This extends superior to the aryepiglottic fold along the lateral aspect of the airway. Direct visualization could exclude a mass. 6. Suspect a lipoma measuring roughly 5-6 cm in the right lower neck. 7. Degenerative changes are seen in the visualized spine. RADIA
[2019-08-15] MEDS ORDERED: carvediloL 3.125 MG TABLET PO SCH (09:00)
[2019-08-15] MEDS ORDERED: ASPIRIN EC 81 MG TABLET PO SCH (09:00)
--- NOTE | 2019-08-15 09:06 | Discharge Plan ---
Discharge Plan Problem Reviewed?: Yes Disposition: Home, Self Care Condition: Good Prescriptions: Atorvastatin [Lipitor] 40 mg PO QPM #30 tablet Diet: Diabetic Activity Restrictions: No Restrictions Shower Restrictions: No Driving Restrictions: No Instruction Topics: Atorvastatin tablets, Aspirin ASA chewable tablets, Stroke Sx, TIA, ED Hypotension Orthostatic Health Concerns: You were seen in the hospital because you had passed out twice as well as concern for a possible stroke. Fortunately, the MRI of your brain did not show a stroke. You may have had what is called a TIA or "mini stroke". It is recommended that you Lipitor which is a cholesterol medication to decrease your risk of stroke. We will hold off on starting Aspirin 81mg at this time because your platelets are on the lower side. Please follow up with your Care Nurse Rn to discuss starting this in the future. You also had two episodes of passing out and this appears to have been due to what is called orthostatic hypotension. You were likely dehydrated and this caused your blood pressure to drop when standing from a sitting position. You w ere treated with IV fluids and this resolved. We will continue your Carvedilol as your heart rate has been a little elevated but we will discontinue your amlodipine. Plan of Treatment: Start taking Lipitor 40mg daily. Stop taking Amlodipine 2.5mg daily. Care Goals: Please follow up with your primary care physician within the next week. Please also follow up with Hematology to discuss starting Aspirin given your platelets are low. If you develop weakness or similar episodes of passing out, please return to the emergency department. No Smoking: If you smoke, Please STOP! Call for help. Follow-up with: Maulik Reed MD [Primary Care Provider] -
[2019-08-15] MEDS ORDERED: PANTOPRAZOLE 40 MG TABLET PO STA (11:42)
[2019-08-15 16:18] VITALS: BP 139/80
--- NOTE | 2019-08-15 18:43 | DISCHARGE SUMMARY ---
"Discharge Summary Admit Date: 08/14/19 Discharge Date: 08/15/19 Discharging Provider: Dr. Jacek Donaldson Primary Care Provider: Dr. Maulik Reed Code Status: Attempt Resuscitation Condition at Discharge: Good Discharge Disposition: 01 Home, Self Care - DIAGNOSES Admission Diagnoses: Syncope TIA Transaminitis Hypertension Type 2 DM Pancytopenia Discharge Diagnoses with Status of Each Condition: Syncope - resolved. No further episodes since hospitalized. Telemetry unremarkable as well as Echo. Orthostatics were positive. Improved with IV fluids. If he has further episodes of syncope, will require holter monitor. He was asked to follow up with his PCP in one week. TIA - resolved. Symptoms resolved. MRI negative for CVA. Started on Lipitor given he is diabetic and has risk factors for CVA. Held off on initiating Aspirin due to his thrombocytopenia. 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 Orthostatic Hypotension - Resolved. Responded to IV fluids. I have continued his Carvedilol but discontinued his Amlodipine as this may have been contributing to the hypotension. Suspect this was the etiology of his syncope. Left ventricular dilation - Stable. Found on Echo. EF 50-55%. Likely due to alcohol use. Discussed importance of limiting alcohol consumption. Transaminitis - Stable. Likely due to alcohol use. Outpatient follow up. Hypertension - Stable. Continue Carvedilol but stop Amlodipine due to above. Type 2 DM - Stable. Continue Metformin. Pancytopenia - Stable. Attempted to contact Dr. Gutierrez to discuss Aspirin for TIA but was unable to reach her. The patient will follow up with her. - HPI History of Present Illness: This is a 54 year old male with a past medical history significant for hypertension, type 2 diabetes, pancytopenia who presents from home after having two syncopal episodes. This morning he felt the need to vomit so he went to the bathroom and after he vomited, he passed out. His heard him fall and went to him where he was passed out for about 20 seconds. He was a little confused after but got up on his own and walked to the bedroom on his own. He then went to go put on his shoes to go to the ER when he passed out again as he was bending over. His heard him fall again and once again he was out for about 20 seconds and was a little confused after. She then called EMS for transport to the ER. The patient reports no prior episodes of syncope. He denies chest pain, palpitations, dizziness or lighteadedness. He did have a nose bleed after the first fall. His believes that he may have hit his head. He did drink alcohol last night and had two alcoholic beverages with the last being at 2pm. He does drink 2 drinks daily for the past few years. He did have cold like symptoms last week and was taking coricidin. When EMS arrived, there was concern for a possible facial droop and left sided weakness. The denies the patient having a facial droop but does state that he was unable to smile. The patient reports feeling weak and having numbness of his left upper extremity but that has since resolved. In the ER, he underwent imaging with a CTA and MRI of the brain which were unremarkable. EtOH level was >200. EKG was unremarkable except for a prolonged QTc of 477. Given concern for TIA and syncope, Medicine was consulted for admission. I did speak with the patient regarding code status and he is a full code. - CONSULTS | PROCEDURES Procedures: Echo, MRI brain, CTA of head and neck. CT of c-spine. - HOSPITAL COURSE Hospital Course: He was admitted for syncope. Telemetry was unremarkable. Orthostatics were positive and so he was treated with IV fluids with improvement. Carvedilol was continued but Amlodipine was discontinue on discharge. Echo showed no valvular disease. His EF was preserved at 50-55% but left ventricle was dilated. He was started on Lipitor for TIA. Aspirin was held given his chronic pancytopenia until it was discussed with Hematology. - ALLERGIES Allergies/Adverse Reactions: Allergies Allergy/AdvReac Type Severity Reaction Status Date / Time fentanyl AdvReac Unknown Verified 08/14/19 17:36 - MEDICATIONS Home Medications: Ambulatory Orders Medication Instructions Recorded Confirmed Carvedilol 6.25 mg PO BID 01/10/18 08/14/19 Esomeprazole Magnesium [Nexium 20 mg PO DAILY 01/10/18 07/03/19 24Hr] Ferrous Sulfate 1 tab PO DAILY 01/10/18 07/03/19 Metformin HCl [Metformin HCl ER] 500 mg PO DAILY 08/14/19 08/14/19 Atorvastatin [Lipitor] 40 mg PO QPM #30 tablet 08/15/19 - PHYSICAL EXAM AT DISCHARGE General Appearance: positive: No acute distress, Alert Eyes Bilateral: positive: Normal inspection ENT: positive: ENT inspection nml Neck: positive: Nml inspection Respiratory: positive: No respiratory distress. negative: Wheezes, Rales Cardiovascular: positive: Regular rate & rhythm, No murmur. negative: Tachycardia, Bradycardia, Systolic murmur, Diastolic murmur Abdomen: positive: Non-tender, No distention. negative: Tenderness, Guarding, Rebound Skin: positive: No rash, Warm, Dry Extremities: positive: Full ROM, No pedal edema Neurologic/Psychiatric: positive: Oriented x3, Motor nml, Sensation nml. negative: Disoriented to person, Disoriented to place, Disoriented to time, Weakness, Sensory loss - LABS Result Diagrams: 08/15/19 05:40 08/15/19 05:40 - DIAGNOSTIC IMAGING Diagnostic Imaging Results: Final report reviewed - FOLLOW UP Follow Up: He was asked to follow up with his primary care physician in one week and Hematology. He will need a CBC in one week to monitor his platelet count. - TIME SPENT Time Spent in Discharge (Minutes): 35"
[2019-08-15] MEDS ORDERED: traZODone 50 MG TABLET PO SCH (21:00)
== END 2019-08-15 16:30 | disposition home or self-care (01) ==
LOC: EDUNIT# → EEVIPCON 10:41 → ED 10:41 → MS2 15:07
PROVIDERS: ADMIT Internal Medicine; ATTEND Internal Medicine
DX: G45.9 Transient cerebral ischemic attack, unspecified (principal); I95.1 Orthostatic hypotension; D61.818 Other pancytopenia; E11.65 Type 2 diabetes mellitus with hyperglycemia; F10.10 Alcohol abuse, uncomplicated; Y90.7 Blood alcohol level of 200-239 mg/100 ml; I51.7 Cardiomegaly; R74.0 Nonspecific elevation of levels of transaminase and lactic acid dehydrogenase [LDH]; I10 Essential (primary) hypertension; R94.31 Abnormal electrocardiogram [ECG] [EKG]; K21.9 Gastro-esophageal reflux disease without esophagitis; Z79.84 Long term (current) use of oral hypoglycemic drugs; Z85.528 Personal history of other malignant neoplasm of kidney; Z87.19 Personal history of other diseases of the digestive system; Z90.5 Acquired absence of kidney
CPT/HCPCS: 36415; 70496; 70498; 70553; 72125; 80048; 80320; 81003; 83036; 83690; 83735; 84484; 85025; 85610; 85730; 93005; 93306; 96361; 96374; 96375; 99285; A9270; A9585; G0378; 80053; 81001; 84443; 87086

== ENCOUNTER 2019-09-07 10:58 | Outpatient (CLI) | payer OTHER ==
[2019-09-07 19:19] LABS: EOSINOPHILS # (AUTO) 0.1 10^3/uL (0.0-0.7); EOSINOPHILS % (AUTO) 4.3 %; HGB - HEMOGLOBIN 11.4 g/dL (14.0-18.0); LYMPHOCYTES # (AUTO) 0.6 10^3/uL (1.5-3.5); LYMPHOCYTES % (AUTO) 18.3 %; MEAN CORPUSCULAR HEMOGLOBIN 28.4 pg (27.0-31.0); MEAN CORPUSCULAR HGB CONC 30.5 g/dL (32.0-36.0); MEAN PLATELET VOLUME 11.2 fL (7.4-11.4); MONOCYTES # (AUTO) 0.4 10^3/uL (0.0-1.0); NEUTROPHILS # (AUTO) 1.9 10^3/uL (1.5-6.6); NEUTROPHILS % (AUTO) 63.1 %; PLT - PLATELET COUNT 91 10^3/uL (130-450); RED BLOOD COUNT 4.02 10^6/uL (4.70-6.10); RED CELL DISTRIBUTION WIDTH 23.4 % (12.0-15.0)
[2019-09-07 19:30] LABS: ALBUMIN 3.1 g/dL (3.2-5.5); ALBUMIN/GLOBULIN RATIO 0.7 (1.0-2.2); BILIRUBIN,TOTAL 3.6 mg/dL (0.2-1.0); CALCIUM 8.9 mg/dL (8.5-10.3); CREATININE 1.6 mg/dL (0.6-1.2); TOTAL PROTEIN 7.7 g/dL (6.7-8.2)
[2019-09-07 20:01] LABS: INR 1.4 (0.8-1.2); PT - PROTHROMBIN TIME 15.5 secs (9.9-12.6)
[2019-09-07 20:13] LABS: PLATELET ESTIMATE, MANUAL DECREASED (<130,000) (NORMAL); PLATELET MORPHOLOGY NORMAL APPEARANCE (NORMAL); RBC MORPHOLOGY (MULTIPLE) 1+ ANISOCYTOSIS (NORMAL)
== END 2019-09-07 23:59 | disposition home or self-care (01) ==
LOC: LAB.WCP 10:58
PROVIDERS: ATTEND Family Medicine
DX: D61.818 Other pancytopenia (principal); R16.1 Splenomegaly, not elsewhere classified; R17 Unspecified jaundice; F10.20 Alcohol dependence, uncomplicated; Y90.9 Presence of alcohol in blood, level not specified
CPT/HCPCS: 36415; 80053; 85025; 85610

== ENCOUNTER 2019-09-14 17:34 | Outpatient (CLI) | payer OTHER ==
--- NOTE | 2019-09-15 08:55 | MRI Report ---
Reason: SYNCOPE Procedure Date: 09/14/2019 Accession Number: [id number] / [id number] Procedure: MRI - Angio Brain W/O (MRA) CPT Code: Final Report FULL RESULT: EXAM MRA BRAIN EXAM DATE: 09/14/2019 06:10 PM. CLINICAL HISTORY: Syncope. Questionably small superior projected outpouching arising from the P1 segment of left BOOTH CASHIER on prior CT angiogram. COMPARISON: BRAIN W/WO 08/14/2019 12:52 PM. NECK ANGIO 08/14/2019 10:50 AM. TECHNIQUE: Multiplanar, multisequence MRA sequences of the brain were performed. Other: None. Post-processing: Multiplanar 3D MIP reconstructions. IV Contrast: None. FINDINGS: RIGHT Internal Carotid (ICA): No aneurysm, stenosis or anomaly. Middle Cerebral (MCA): No aneurysm, stenosis or anomaly. Anterior Cerebral (LEANN): No aneurysm, stenosis or anomaly. (Note, a portion of the A2 segment is partially obscured by artifact at the level of the tuberculum sellae. This is seen to be normal on CT angiogram.) Posterior Cerebral (BOOTH CASHIER): No aneurysm, stenosis or anomaly. Posterior Communicating (P-COM): No aneurysm, stenosis or anomaly. Vertebral: No aneurysm, stenosis or anomaly in the visualized upper vertebral artery. LEFT Internal Carotid (ICA): No aneurysm, stenosis or anomaly. Middle Cerebral (MCA): No aneurysm, stenosis or anomaly. Anterior Cerebral (LEANN): No aneurysm, stenosis or anomaly. Posterior Cerebral (BOOTH CASHIER): There are 2 small conical outpouching seen projected from the P1 segment. A 1.4 x 0.9 mm outpouching projects superiorly from the proximal P1 segment. A 1.3 x 0.9 mm outpouching projects inferiorly from the distal P1 segment at the junction with the P2 segment. These are unchanged from prior CT angiogram. No definite vessel arises from the apex of the outpouching. Posterior Communicating (P-COM): Not visualized. Vertebral: No aneurysm, stenosis or anomaly in the visualized upper vertebral artery. Dominant. The left PICA is dominant arising from the mid V4 segment. MIDLINE Anterior Communicating (A-COM): Not visualized. Basilar Artery:No aneurysm, stenosis or anomaly. The right AICA is dominant and unremarkable. Bilateral superior cerebellar arteries are unremarkable. Other: None. IMPRESSION: 1. Small, 1.4 x 0.9 mm, conical outpouching projected superiorly from the proximal P1 segment of the left BOOTH CASHIER. This is unchanged from prior CT angiogram. This could represent infundibulum versus small aneurysm. Six-month followup MRA may be of value to assess stability. 2. Small, 1.3 x 0.9 mm, conical outpouching projected anteriorly inferiorly from the distal P1 segment of the left BOOTH CASHIER at the junction with the P2 segment. This is unchanged from prior CT angiogram. This could represent an infundibulum at P-COM, versus small aneurysm. Six-month followup MRA may be of value to assess stability. 3. Otherwise unremarkable MRA of the intracranial circulation. RADIA
== END 2019-09-14 17:35 | disposition home or self-care (01) ==
LOC: DI 17:34
PROVIDERS: ATTEND Family Medicine
DX: R55 Syncope and collapse (principal)
CPT/HCPCS: 70544

== ENCOUNTER 2019-09-20 09:00 | Outpatient (CLI) | payer OTHER ==
[2019-09-20 12:57] LABS: BASOPHILS % (AUTO) 0.9 %; EOSINOPHILS # (AUTO) 0.2 10^3/uL (0.0-0.7); LYMPHOCYTES # (AUTO) 0.7 10^3/uL (1.5-3.5); LYMPHOCYTES % (AUTO) 15.1 %; MEAN CORPUSCULAR HEMOGLOBIN 28.2 pg (27.0-31.0); MEAN CORPUSCULAR HGB CONC 30.4 g/dL (32.0-36.0); MEAN CORPUSCULAR VOLUME 92.8 fL (80.0-94.0); MEAN PLATELET VOLUME 12.1 fL (7.4-11.4); MONOCYTES # (AUTO) 0.3 10^3/uL (0.0-1.0); MONOCYTES % (AUTO) 7.1 %; NEUTROPHILS # (AUTO) 3.3 10^3/uL (1.5-6.6); NEUTROPHILS % (AUTO) 72.5 %; PLT - PLATELET COUNT 120 10^3/uL (130-450); RED CELL DISTRIBUTION WIDTH 20.1 % (12.0-15.0); WHITE BLOOD COUNT 4.5 x10^3/uL (4.8-10.8)
[2019-09-20 13:03] LABS: INR 1.5 (0.8-1.2); PT - PROTHROMBIN TIME 16.5 secs (9.9-12.6)
[2019-09-20 13:12] LABS: ALBUMIN 3.1 g/dL (3.2-5.5); ALBUMIN/GLOBULIN RATIO 0.7 (1.0-2.2); BILIRUBIN,TOTAL 2.8 mg/dL (0.2-1.0); CALCIUM 8.8 mg/dL (8.5-10.3); CREATININE 1.1 mg/dL (0.6-1.2); TOTAL PROTEIN 7.5 g/dL (6.7-8.2)
== END 2019-09-20 23:59 | disposition home or self-care (01) ==
LOC: LAB.WCP 09:00
PROVIDERS: ATTEND Family Medicine
DX: F10.20 Alcohol dependence, uncomplicated (principal); R16.1 Splenomegaly, not elsewhere classified; K72.90 Hepatic failure, unspecified without coma
CPT/HCPCS: 36415; 80053; 85025; 85610

== ENCOUNTER 2019-10-29 12:21 | Outpatient (CLI) | payer OTHER ==
--- NOTE | 2019-10-30 07:44 | XRAY Report ---
Reason: ANEMIA Procedure Date: 10/29/2019 Accession Number: [id number] / [id number] Procedure: XR - Chest 2 View X-Ray CPT Code: 35478 Final Report FULL RESULT: EXAM: CHEST RADIOGRAPHY 2 VIEWS EXAM DATE: 10/29/2019. CLINICAL HISTORY: Anemia. COMPARISON: None. TECHNIQUE: PA and lateral views. FINDINGS: Lungs/Pleura: Normal vasculature. 9 mm nodular opacity projected over the right lung base. Lungs are otherwise clear. Azygos lobe in the right apex, a normal variant. No pleural fluid or pneumothorax. Mediastinum: Normal cardiac and mediastinal contours. External pacemaker in place on the left. Bones: Fractured surgical screw in the right glenoid, the fractured components by 10 mm. IMPRESSION: 9 mm nodular opacity projected over the right lung base, most likely nipple shadow. This could be confirmed with a follow-up PA view done with nipple markers. Otherwise, no radiographic cardiopulmonary abnormality. RADIA
== END 2019-10-29 12:22 | disposition home or self-care (01) ==
LOC: DI 12:21
PROVIDERS: ATTEND Physician Assistant
DX: Z08 Encounter for follow-up examination after completed treatment for malignant neoplasm (principal); R91.8 Other nonspecific abnormal finding of lung field; D64.9 Anemia, unspecified; Z85.528 Personal history of other malignant neoplasm of kidney
CPT/HCPCS: 71046

== ENCOUNTER 2020-04-04 08:00 | Outpatient (CLI) | payer MEDICAID, OTHER ==
[2020-04-04 18:49] LABS: EOSINOPHILS # (AUTO) 0.1 10^3/uL (0.0-0.7); EOSINOPHILS % (AUTO) 3.3 %; HEMOGLOBIN A1C 0.83 g/dL; HGB - HEMOGLOBIN 13.1 g/dL (14.0-18.0); LYMPHOCYTES # (AUTO) 0.9 10^3/uL (1.5-3.5); LYMPHOCYTES % (AUTO) 28.1 %; MEAN CORPUSCULAR HEMOGLOBIN 30.3 pg (27.0-31.0); MEAN CORPUSCULAR HGB CONC 32.8 g/dL (32.0-36.0); MEAN CORPUSCULAR VOLUME 92.6 fL (80.0-94.0); MEAN PLATELET VOLUME 12.3 fL (7.4-11.4); MONOCYTES # (AUTO) 0.3 10^3/uL (0.0-1.0); MONOCYTES % (AUTO) 8.9 %; NEUTROPHILS # (AUTO) 1.8 10^3/uL (1.5-6.6); NEUTROPHILS % (AUTO) 58.4 %; PLT - PLATELET COUNT 68 10^3/uL (130-450); RED BLOOD COUNT 4.32 10^6/uL (4.70-6.10); RED CELL DISTRIBUTION WIDTH 13.2 % (12.0-15.0)
[2020-04-04 19:03] LABS: ALBUMIN 3.5 g/dL (3.2-5.5); ALKALINE PHOSPHATASE 147 IU/L (42-121); ALT ALANINE AMINOTRANSFERASE 40 IU/L (10-60); AST ASPARTATE AMINOTRANSFERASE 52 IU/L (10-42); BILIRUBIN,TOTAL 2.2 mg/dL (0.2-1.0); BUN - BLOOD UREA NITROGEN 11 mg/dL (6-20); CALCIUM 8.9 mg/dL (8.5-10.3); CARBON DIOXIDE - CO2 25 mmol/L (21-32); CHLORIDE 106 mmol/L (101-111); CHOL/HDL RATIO 3.1 (<5.0); CHOLESTEROL 131 mg/dL; GLUCOSE 205 mg/dL (70-100); HDL CHOLESTEROL 42 mg/dL; LDL CHOLESTEROL,CALCULATED 53 mg/dL; LDL/HDL RATIO 1.3 (<3.6); SODIUM 138 mmol/L (135-145); VLDL CHOLESTEROL 36 mg/dL
[2020-04-04 19:10] LABS: CREATININE,URINE 93.9 mg/dL; MICROALBUMIN,URINE < 0.2 mg/dL (0-300.0)
[2020-04-04 19:59] LABS: HB2 TOTAL 13.6 g/dL; HEMOGLOBIN A1C % 7.7 % (4.6-6.2)
== END 2020-04-04 23:59 | disposition home or self-care (01) ==
LOC: LAB.WCP 08:00
PROVIDERS: ATTEND Family Medicine
DX: K72.90 Hepatic failure, unspecified without coma (principal); D64.9 Anemia, unspecified; E11.9 Type 2 diabetes mellitus without complications; I10 Essential (primary) hypertension
CPT/HCPCS: 36415; 80053; 80061; 82043; 82570; 83036; 83721; 84443; 85025

== ENCOUNTER 2020-07-16 13:43 | Outpatient (CLI) | payer MEDICAID ==
--- NOTE | 2020-07-16 15:16 | XRAY Report ---
PROCEDURE: Knee Standing BILAT INDICATIONS: ARTHRITIS, KNEES, BILATERAL TECHNIQUE: 2 views of each knee. COMPARISON: None. FINDINGS: Bones: No acute fractures or dislocations. No suspicious bony lesions. Joint spaces appear normal with weightbearing. Minimal degenerative changes are seen in the anterior compartments bilaterally. Soft tissues: No knee joint effusions. No suspicious soft tissue calcification. IMPRESSION: No acute osseous abnormality. Only minimal degenerative changes are seen. If symptoms persist, MRI ma y be obtained for further evaluation. Reviewed by: Tanner Lucas MD on 07/16/2020 3:15 PM PDT Approved by: Tanner Lucas MD on 07/16/2020 3:15 PM PDT Station ID: [id number]
== END 2020-07-16 13:44 | disposition home or self-care (01) ==
LOC: DI 13:43
PROVIDERS: ATTEND Family Medicine
DX: M17.0 Bilateral primary osteoarthritis of knee (principal)
CPT/HCPCS: 73565

== ENCOUNTER 2020-10-30 08:00 | Outpatient (CLI) | payer MEDICAID ==
[2020-10-30 13:33] LABS: BASOPHILS % (AUTO) 0.7 %; EOSINOPHILS # (AUTO) 0.1 10^3/uL (0.0-0.7); EOSINOPHILS % (AUTO) 3.7 %; HGB - HEMOGLOBIN 13.5 g/dL (14.0-18.0); LYMPHOCYTES # (AUTO) 0.8 10^3/uL (1.5-3.5); LYMPHOCYTES % (AUTO) 28.1 %; MEAN CORPUSCULAR HEMOGLOBIN 30.5 pg (27.0-31.0); MEAN CORPUSCULAR HGB CONC 32.5 g/dL (32.0-36.0); MEAN CORPUSCULAR VOLUME 94.1 fL (80.0-94.0); MEAN PLATELET VOLUME 12.2 fL (7.4-11.4); MONOCYTES # (AUTO) 0.2 10^3/uL (0.0-1.0); NEUTROPHILS # (AUTO) 1.6 10^3/uL (1.5-6.6); NEUTROPHILS % (AUTO) 60.1 %; PLT - PLATELET COUNT 70 10^3/uL (130-450); RED BLOOD COUNT 4.42 10^6/uL (4.70-6.10); RED CELL DISTRIBUTION WIDTH 13.5 % (12.0-15.0); WHITE BLOOD COUNT 2.7 x10^3/uL (4.8-10.8)
[2020-10-30 13:36] LABS: INR 1.3 (0.8-1.2); PT - PROTHROMBIN TIME 14.5 secs (9.9-12.6)
[2020-10-30 13:47] LABS: ALBUMIN 3.8 g/dL (3.2-5.5); ALBUMIN/GLOBULIN RATIO 1.3 (1.0-2.2); BILIRUBIN,TOTAL 1.9 mg/dL (0.2-1.0); CALCIUM 9.1 mg/dL (8.5-10.3); TOTAL PROTEIN 6.8 g/dL (6.7-8.2)
[2020-10-30 14:19] LABS: PLATELET MORPHOLOGY NORMAL APPEARANCE (NORMAL)
[2020-10-30 14:20] LABS: PLATELET ESTIMATE, MANUAL DECREASED (<130,000) (NORMAL); RBC MORPHOLOGY (MULTIPLE) NORMAL APPEARANCE (NORMAL)
== END 2020-10-30 23:59 ==
LOC: LAB.WCP 08:00
PROVIDERS: ATTEND Student in an Organized Health Care Education/Training Program
DX: K70.30 Alcoholic cirrhosis of liver without ascites (principal)
CPT/HCPCS: 36415; 80053; 82306; 85025; 85610